=== PATIENT | female | born 1945 | race Caucasian/White ===

== ENCOUNTER 2018-12-16 19:33 | Inpatient (IN) | payer MEDICARE, OTHER ==
[~2018-12-16] VITALS: Ht 153.7 cm; Wt 95.5 kg
[2018-12-16 20:23] LABS: BASOPHILS # (AUTO) 0.1 X10'3 (0-0.2); EOSINOPHILS # (AUTO) 0.1 X10'3 (0-0.9); EOSINOPHILS % (AUTO) 1.5 % (0-6); HEMOGLOBIN 13.6 g/dl (12.0-16.0); LYMPHOCYTES # (AUTO) 1.5 X10'3 (1.1-4.8); LYMPHOCYTES % (AUTO) 22.1 % (21-51); MEAN CORPUSCULAR HEMOGLOBIN 31.8 PG (27.0-31.0); MEAN CORPUSCULAR HGB CONC 33.9 g/dL (33.0-36.5); MEAN CORPUSCULAR VOLUME 93.8 FL (78-98); MEAN PLATELET VOLUME 7.2 FL (7.4-10.4); MONOCYTES # (AUTO) 0.7 X10'3 (0-0.9); MONOCYTES % (AUTO) 9.5 % (2-12); NEUTROPHILS # (AUTO) 4.6 X10'3 (1.8-7.7); NEUTROPHILS % (AUTO) 65.9 % (42-75); PLATELET COUNT 249 X10'3 (140-440); RED BLOOD COUNT 4.27 X10'6 (4.20-5.60); RED CELL DISTRIBUTION WIDTH 13.4 % (11.5-14.5); WHITE BLOOD COUNT 6.9 X10'3 (4.5-11.0)
[2018-12-16 20:35] LABS: PARTIAL THROMBOPLASTIN TIME 26 SECONDS (22-32)
[2018-12-16 20:40] LABS: ALANINE AMINOTRANSFERASE 23 U/L (12-78); ALBUMIN 3.7 G/DL (3.4-5.0); ALBUMIN/GLOBULIN RATIO 0.8 (1.1-1.5); ALKALINE PHOSPHATASE 102 IU/L (46-116); ANION GAP 8 (8-16); ASPARTATE AMINO TRANSFERASE 18 U/L (10-37); BILIRUBIN,TOTAL 0.2 MG/DL (0.1-1.0); BLOOD UREA NITROGEN 17 MG/DL (7-18); BUN/CREATININE RATIO 17.7 (6.6-38.0); CALCIUM 9.3 MG/DL (8.5-10.1); CHLORIDE 104 MMOL/L (99-107); CREATININE 0.96 MG/DL (0.40-0.90); GLUCOSE 85 MG/DL (70-104); SODIUM 140 MMOL/L (135-145); TOTAL CARBON DIOXIDE 28.1 MMOL/L (24-32); TOTAL PROTEIN 8.2 G/DL (6.4-8.2); eGFR 57 ML/MIN
--- NOTE | 2018-12-16 21:23 | NUR ---
pt up out of bed to bathroom with family memeber at bedside with the assit of a cane steady gait
--- NOTE | 2018-12-16 21:30 | NUR ---
PT BP AT 207/79 DR WILKS NOTIFIED
[2018-12-16 22:45] LABS: LIPASE 177 U/L (73-393)
[2018-12-16] MEDS ORDERED: magnesium hydroxide 30ml (MOM) UD suspension PO PRN (23:10)
[2018-12-16] MEDS ORDERED: mag hydrox/Alum hydrox/simeth 30ml oral suspension PO PRN (23:10)
[2018-12-16] MEDS ORDERED: ondansetron/PF 4mg/2ml inj IV PRN (23:10)
[2018-12-16] MEDS ORDERED: metoprolol tartrate 1mg/ml inj IV ONE (23:15)
--- NOTE | 2018-12-17 00:08 | NUR ---
BP AT 161/63 HELD KOFI RAMOS AWARE
[2018-12-17] MEDS: normal saline 1000ml 1,000 ML IV SCH (02:37)
[2018-12-17 03:33] LABS: BASOPHILS % (AUTO) 0.8 % (0-1); EOSINOPHILS # (AUTO) 0.1 X10'3 (0-0.9); EOSINOPHILS % (AUTO) 1.3 % (0-6); HEMATOCRIT 38.1 % (35.0-45.0); HEMOGLOBIN 12.8 g/dl (12.0-16.0); LYMPHOCYTES # (AUTO) 1.5 X10'3 (1.1-4.8); LYMPHOCYTES % (AUTO) 24.8 % (21-51); MEAN CORPUSCULAR HEMOGLOBIN 31.6 PG (27.0-31.0); MEAN CORPUSCULAR HGB CONC 33.6 g/dL (33.0-36.5); MEAN CORPUSCULAR VOLUME 93.9 FL (78-98); MEAN PLATELET VOLUME 7.5 FL (7.4-10.4); MONOCYTES # (AUTO) 0.6 X10'3 (0-0.9); MONOCYTES % (AUTO) 9.4 % (2-12); NEUTROPHILS # (AUTO) 3.7 X10'3 (1.8-7.7); NEUTROPHILS % (AUTO) 63.7 % (42-75); PLATELET COUNT 224 X10'3 (140-440); RED BLOOD COUNT 4.06 X10'6 (4.20-5.60); RED CELL DISTRIBUTION WIDTH 13.3 % (11.5-14.5); WHITE BLOOD COUNT 5.9 X10'3 (4.5-11.0)
[2018-12-17 03:47] LABS: ALANINE AMINOTRANSFERASE 21 U/L (12-78); ALBUMIN 3.2 G/DL (3.4-5.0); ALBUMIN/GLOBULIN RATIO 0.8 (1.1-1.5); ALKALINE PHOSPHATASE 87 IU/L (46-116); ANION GAP 9 (8-16); ASPARTATE AMINO TRANSFERASE 16 U/L (10-37); BILIRUBIN,TOTAL 0.4 MG/DL (0.1-1.0); BLOOD UREA NITROGEN 16 MG/DL (7-18); BUN/CREATININE RATIO 21.1 (6.6-38.0); CALCIUM 8.4 MG/DL (8.5-10.1); CHLORIDE 107 MMOL/L (99-107); CREATININE 0.76 MG/DL (0.40-0.90); GLUCOSE 87 MG/DL (70-104); POTASSIUM 3.7 MMOL/L (3.5-5.1); SODIUM 142 MMOL/L (135-145); TOTAL PROTEIN 7.2 G/DL (6.4-8.2); eGFR 74 ML/MIN
[2018-12-17] MEDS ORDERED: IBUP-24 PO (04:06)
--- NOTE | 2018-12-17 04:25 | NUR ---
PT BP AT 193/84 MEDICATED WITH LOPRESSOR 5MG IV
--- NOTE | 2018-12-17 06:15 | NUR ---
PT UP OUT OF BED TO AMBULATE IN HALLWAY TO BATHROOM WITH CANE
--- NOTE | 2018-12-17 06:25 | NUR ---
PT HEART DOWN TO THE 48 ONCE ASLEEP 1 HOUR POST LOPRESSER . ONCE PT WAS AROUSED HEART RATE UP TO 56 REPORTED TO ELIDA LAWRENCE , AT CHANGE OF SHIFT [facility] RESULTS OF THE LOPRESSER ON HEART RATE .
[2018-12-17] MEDS: metoprolol tartrate 25mg tablet PO SCH ×2 (08:00→20:08)
--- NOTE | 2018-12-17 09:04 | NUR ---
RECIEVED TELEPHONE REPORT PER ELIDA ANDERSON. PAGED ART RN.
[2018-12-17 09:25] VITALS: BP 162/78
[2018-12-17] MEDS: heparin, porcine 5000 units/ml vial SQ SCH ×3 (10:49→20:03)
[2018-12-17] MEDS: aspirin 325mg tablet PO SCH (10:56)
[2018-12-17] MEDS: hydrALAZINE 20mg/ml inj. IV PRN (10:57)
[2018-12-17 11:00] VITALS: BP 180/77
--- NOTE | 2018-12-17 11:40 | NUR ---
PAGER ID: [phone] MESSAGE: DR. LOPEZ, [id number]/SHASTA, SHE IS NPO. NO PENDING DIAGNOSTIC REQUIRING NPO STATUS.. ECHO APPEARS TO BE CANCELLED PER DR. RAMOS? SHE REFUSED SUBQ HEPARIN. SOM [id number].
[2018-12-17 11:45] VITALS: BP 160/66
[2018-12-17] MEDS ORDERED: regadenoson 0.4mg/5ml syringe IV ONE (13:00)
[2018-12-17] MEDS ORDERED: aminophylline 250mg/10ml inj. IV PRN (13:00)
[2018-12-17] MEDS ORDERED: nitroGLYCERIN 0.4mg SUBLingual tab SL PRN (13:00)
[2018-12-17 15:00] VITALS: BP 117/63
--- NOTE | 2018-12-17 18:45 | NUR ---
Patient in room PCU 3025. I have received report from ELIDA Peralta and had the opportunity to ask questions and assume patient care.
--- NOTE | 2018-12-17 18:47 | NUR ---
Problems reprioritized. Patient report given, questions answered & plan of care reviewed with ELIDA SIMPSON.
[2018-12-17 19:00] VITALS: BP 165/79
[2018-12-17] MEDS: acetaminophen 325mg tablet PO PRN (20:03)
[2018-12-17 23:00] VITALS: BP 157/71
--- NOTE | 2018-12-17 23:37 | NUR ---
Patient stated to me that she is not allergic to acetaminophen.
[2018-12-18] VITALS (15 sets, daily range): BP systolic 104–185; BP diastolic 56–88
[2018-12-18] MEDS: normal saline 1000ml 1,000 ML IV SCH (00:07)
--- NOTE | 2018-12-18 03:18 | NUR ---
sent to [facility] MESSAGE: room 3025 B, Gris Pratt: HR is now 40 BP is 140/71 ( [phone] please advise
--- NOTE | 2018-12-18 03:24 | NUR ---
STOP metoprolol per Dr. Ventura due to patient HR of 40. Monitor tele per Audrey
[2018-12-18 04:54] LABS: BASOPHILS % (AUTO) 0.9 % (0-1); EOSINOPHILS # (AUTO) 0.1 X10'3 (0-0.9); EOSINOPHILS % (AUTO) 1.9 % (0-6); HEMATOCRIT 37.4 % (35.0-45.0); HEMOGLOBIN 12.8 g/dl (12.0-16.0); LYMPHOCYTES # (AUTO) 1.6 X10'3 (1.1-4.8); LYMPHOCYTES % (AUTO) 32.3 % (21-51); MEAN CORPUSCULAR HEMOGLOBIN 31.8 PG (27.0-31.0); MEAN CORPUSCULAR HGB CONC 34.1 g/dL (33.0-36.5); MEAN CORPUSCULAR VOLUME 93.2 FL (78-98); MEAN PLATELET VOLUME 7.5 FL (7.4-10.4); MONOCYTES # (AUTO) 0.5 X10'3 (0-0.9); MONOCYTES % (AUTO) 10.7 % (2-12); NEUTROPHILS # (AUTO) 2.8 X10'3 (1.8-7.7); NEUTROPHILS % (AUTO) 54.2 % (42-75); PLATELET COUNT 223 X10'3 (140-440); RED BLOOD COUNT 4.01 X10'6 (4.20-5.60); RED CELL DISTRIBUTION WIDTH 13.3 % (11.5-14.5); WHITE BLOOD COUNT 5.1 X10'3 (4.5-11.0)
[2018-12-18 05:08] LABS: ALANINE AMINOTRANSFERASE 16 U/L (12-78); ALBUMIN 3.2 G/DL (3.4-5.0); ALBUMIN/GLOBULIN RATIO 0.9 (1.1-1.5); ALKALINE PHOSPHATASE 88 IU/L (46-116); ANION GAP 10 (8-16); ASPARTATE AMINO TRANSFERASE 16 U/L (10-37); BILIRUBIN,TOTAL 0.5 MG/DL (0.1-1.0); BLOOD UREA NITROGEN 24 MG/DL (7-18); CHLORIDE 107 MMOL/L (99-107); CREATININE 0.96 MG/DL (0.40-0.90); GLUCOSE 94 MG/DL (70-104); POTASSIUM 3.6 MMOL/L (3.5-5.1); SODIUM 140 MMOL/L (135-145); TOTAL CARBON DIOXIDE 22.8 MMOL/L (24-32); TOTAL PROTEIN 6.9 G/DL (6.4-8.2); eGFR 57 ML/MIN
--- NOTE | 2018-12-18 06:25 | NUR ---
Patient in room PCU 3025. I have received report from ELIDA SIMPSON and had the opportunity to ask questions and assume patient care.
--- NOTE | 2018-12-18 06:36 | NUR ---
Problems reprioritized. Patient report given, questions answered & plan of care reviewed with ELIDA Peralta.
--- NOTE | 2018-12-18 06:36 | NUR ---
Patient in room PCU 3025. I have received report from ELIDA Johnson and had the opportunity to ask questions and assume patient care.
[2018-12-18] MEDS: hydrALAZINE 20mg/ml inj. IV PRN (07:12)
[2018-12-18] MEDS: heparin, porcine 5000 units/ml vial SQ SCH (07:24)
[2018-12-18] MEDS: aspirin 325mg tablet PO SCH (07:24)
--- NOTE | 2018-12-18 08:08 | NUR ---
I CHARTED PHYSICAL ASSESSMENT ON 12-17-18 WITH ADMISSION. IT IS NOT THERE NOW. DISCUSSED WITH VINICIUS SANDOVAL RN.
--- NOTE | 2018-12-18 11:26 | NUR ---
PAGER ID: [phone] MESSAGE: DR. LOPEZ, [id number] C/O BURROWS 05/20. MAY I PLEASE HAVE AN ORDER FOR TYLENOL FOR PAIN? THANK YOU, SOM [id number].
[2018-12-18] MEDS ORDERED: acetaminophen 325mg tablet PO PRN (11:30)
[2018-12-18] MEDS: acetaminophen 325mg tablet PO PRN (11:40)
--- NOTE | 2018-12-18 12:34 | NUR ---
PAGER ID: [phone] MESSAGE: DR. LOPEZ, [id number]/SHASTA, RECEIVED TYLENOL LAST NIGHT AND TODAY. JUST REALIZED RECORD SHOWS ALLERGIC TO TYLENOL, PT STATES "IT MAKES MY STOMACH UPSET WITHOUT FOOD. SOM [id number]. PS, DO RESULTED,SHE WANTS TO EAT. HER LUNCH IS HERE. TY
[2018-12-18] MEDS ORDERED: NIFE30TA88 PO (12:54)
--- NOTE | 2018-12-18 18:34 | NUR ---
CHIEF OPERATING ENGINEERattic blower: I have reviewed and agree with all interventions, assessments performed and documented by ELIDA GIBSON.
== END 2018-12-18 16:33 | disposition home or self-care (01) | DRG 305 ==
LOC: ER 19:34 → ED HOLD 23:07 → PCU 3S 12-17 09:23
PROVIDERS: ADMIT Internal Medicine; ATTEND Family Medicine
PROC: 4A02XM4 Measurement of Cardiac Total Activity, External Approach (ICD-10-PCS; principal; 2018-12-18)
PROC: 3E033HZ Introduction of Radioactive Substance into Peripheral Vein, Percutaneous Approach (ICD-10-PCS; 2018-12-18)
DX: I16.0 Hypertensive urgency (principal); Z68.41 Body mass index [BMI] 40.0-44.9, adult; R07.89 Other chest pain; T44.7X5A Adverse effect of beta-adrenoreceptor antagonists, initial encounter; R00.1 Bradycardia, unspecified; E78.5 Hyperlipidemia, unspecified; Z96.651 Presence of right artificial knee joint; I10 Essential (primary) hypertension; E78.00 Pure hypercholesterolemia, unspecified; Z53.9 Procedure and treatment not carried out, unspecified reason; Z88.6 Allergy status to analgesic agent; Y92.89 Other specified places as the place of occurrence of the external cause
CPT/HCPCS: 36415; 71045; 78452; 80053; 83690; 84484; 85025; 85610; 85730; 87081; 93005; 93017; 93306; 93970; 99285; A9500; G0378; J0280; J0360; J1644; J2785; J3490; J7030